=== PATIENT | female | born 2000 | race Caucasian/White ===

== ENCOUNTER 2022-02-22 12:07 | Emergency (ER) | payer BC, SELFPAY ==
[2022-02-22 12:14] VITALS: BP 119/70; PULSE 83; RESP 16; TEMP 37.1; O2SAT 98
--- NOTE | 2022-02-22 13:05 | ED.GENADUL_ITS ---
Discharge Plan Disposition Patient Disposition: Home Condition: Stable Discharge Details Clinical Impression: Otitis media, URI (upper respiratory infection) Primary Care Provider: Unknown,Unknown ED Provider: Sesar Watson Home Meds and New Rx's Prescriptions: New amoxicillin 875 mg tablet 875 mg PO BID 7 Days Qty: 14 0RF Continued dexmethylphenidate 10 mg tablet 10 mg PO DAILY MDD 10 mg Qty: 15 0RF No Action mometasone 50 mcg/actuation spray,non-aerosol 2 spray intranasal DAILY Qty: 17 0RF Rx Instructions: administer into each nostril Discharge Instructions Instructions: Ear Infection (ED), Upper Respiratory Infection (ED) Additional Instructions: Please continue to take [id number] ibuprofen 600 mg every 6 hours as needed for pain and discomfort. If you develop any new or worsening symptoms please return to the emergency department for reassessment otherwise if not improving in the next week please follow-up with your primary care provider or local urgent care for recheck of your symptoms. Please take the antibiotic for the full course of 7 days even if you are improving to ensure full treatment of your infection. Referrals: Primary Care Provider [Outside] Discharge Data Discharge Date/Time-TO BE ENTERED AT DEPARTURE: 02/22/22 13:16 Medical Decision Making Think that patient presenting the emergency department with chief complaint of right ear pain. She states that she has had an upper respiratory cold for the past week but over the past 24 to 48 hours has noticed increase in right ear discomfort. Denies any loss of hearing, drainage from the ear, stiff neck, productive cough. Patient does report subjective low-grade fevers , sore throat, and nasal congestion with intermittent red irritated eyes. Physical exam does show a purulent effusion behind the right TM very minimal erythema and left TM does show a small amount of purulence as well. Exam is otherwise unremarkable. Exam consistent with Viral URI no signs of deep neck space infection ( Retropharyngeal abscess, Vasquez's angina, Parapharyngeal space infection, Peritonsillar Abscess (TRANSITION ADVISOR)) or Epiglottitis, no signs of meningitis and at this time I doubt associated pneumonia. Pt non toxic and stable. Strep testing along with rapid antigen testing of flu and COVID are all negative. Will prescribe patient antibiotics for otitis media and discussed conservative management of additional symptoms. After discussion of diagnosis and plan of care patient has no further needs, questions, or concerns and states clear understanding to return to the emergency department for any worsening symptoms. This documentation was generated using [employer] [place] dictation system, please disregard any oddities of phrase or misspellings. Sign Out No HPI General Mode of arrival: ambulatory . Date/Time Provider Initiated Documentation: 02/22/22 12:27 . Limitations to Documentation: no limitations . Information obtained by: patient . History of Present Illness 21 year old F presents to the emergency department with the chief complaint of right ear pain , cough sore throat and runny nose, described as moderate, Quality is described as aching, and is localized to the right (ear). Patient reports no radiation. Patient started experiencing this week(s) (1) and it has been constant. No relieving factors improve symptom(s), No exacerbating factors reported . Patient did receive the following treatments prior to arrival, NSAID Related Data Home Medications Medication Instructions Recorded Confirmed dexmethylphenidate 10 mg tablet 10 mg PO DAILY #15 tabs 03/18/19 02/26/22 amoxicillin 875 mg tablet 875 mg PO BID 7 days #14 tabs 02/22/22 02/26/22 mometasone 50 mcg/actuation nasal 2 spray intranasal DAILY #17 grams 02/26/22 spray Previous Rx's Medication Instructions Recorded dexmethylphenidate 10 mg tablet 10 mg PO DAILY #15 tabs 03/18/19 amoxicillin 875 mg tablet 875 mg PO BID 7 days #14 tabs 02/22/22 mometasone 50 mcg/actuation nasal 2 spray intranasal DAILY #17 grams 02/26/22 spray Allergies Allergy/AdvReac Type Severity Reaction Status Date / Time No Known Allergies Allergy Verified 02/26/22 09:02 General Stated Complaint: Sorethroat SANTOS: 4 Review of Systems Constitutional Constitutional: Reports chills, Reports fever(s), Denies headache(s) and Reports malaise Eyes Eyes: Reports irritation ENT Ears, Nose, Mouth, and Throat: Reports as per HPI, Denies ear discharge, Reports otalgia, Denies headache(s), Reports nasal congestion, Reports nasal discharge, Denies neck pain and Reports sore throat Cardiovascular Cardiovascular: Denies chest pain and Denies dyspnea Respiratory Respiratory: Reports cough and Denies dyspnea Gastrointestinal Gastrointestinal: Denies abdominal pain Musculoskeletal Musculoskeletal: Denies myalgias and Denies neck pain Integumentary/Breasts Skin/Breast: Denies rash Neurologic Neurologic: Denies headache(s) PFSH All Active Problems (Updated 02/26/22 @ 09:20 by MIGUELITO Jackson) Otitis media (Acute) URI (upper respiratory infection) (Acute) Blocked eustachian tube (Acute) Acne (Acute 05/19/12) Pes planus (Acute 12/23/12) ADHD, predominantly inattentive type (Acute 02/20/12) inattentive Medical History (Updated 02/26/22 @ 09:20 by MIGUELITO Jackson) ADHD, predominantly inattentive type Family History Other Diabetes MGM Alcohol abuse mat great GF, PGM Essential hypertension MGM, PGM Personal history of malignant neoplasm mat and pat great GM- breast Heart disease MGF Hyperlipidemia MGM Myocardial infarction mat great GF Stroke mat great GM, pat great GF Mother Healthy adult on routine physical examination Father Healthy adult on routine physical examination Social History Smoking/Tobacco Use Status: Never Smoking risk assessment performed?: Yes Drug use: Never Substance use type: does not use Do you feel safe at home: Yes Do you feel safe in your relationship?: Yes Exam Const General: cooperative, comfortable and no acute distress Orientation: alert and awake [facility] Head: normal to inspection, normocephalic and atraumatic Ears: hearing grossly normal bilaterally, mastoids normal and TM abnormal bulging bilaterally, wth effusion purulent bilaterally, erythematous on the right and with loss of landmarks bilaterally General nose exam: external nose normal Face and sinus: no erythema Mouth: oral mucosae normal, no drooling, no muffled voice and no trismus Throat: posterior oropharynx normal Neck Neck: normal visual inspection, full ROM, no lymphadenopathy, no meningeal signs, trachea midline and supple Resp Effort & Inspection: normal respiratory effort, able to speak in complete sentences and cough Quality of cough: dry Auscultation: clear to auscultation bilaterally Cardio Rate: regular rate Rhythm: regular rhythm Heart Sounds: S1 normal, S2 normal, normal S1 and S2, no click, no gallops, no murmurs and no rubs Skin General skin exam: no rashes or lesions noted and dry skin (warm) Neuro General: patient alert, patient awake, patient oriented x3, gait normal and moves all extremities Cognition: normal cognition Speech: speech normal Course Vital Signs Vital signs: Vital Signs Temperature 37.1 C 02/22/22 12:14 Pulse 83 02/22/22 12:14 Respiratory Rate 16 02/22/22 12:14 Blood Pressure 119/70 02/22/22 12:14 Pulse Oximetry 98 02/22/22 12:14 Temperature 37.1 C 02/22/22 12:14 Temperature Source Temporal Artery Scan 02/22/22 12:14 Pulse 83 02/22/22 12:14 Respiratory Rate 16 02/22/22 12:14 Respiratory Effort Non-Labored 02/22/22 12:19 Blood Pressure 119/70 02/22/22 12:14 Blood Pressure Position Sitting 02/22/22 12:14 Pulse Oximetry 98 02/22/22 12:14 Oxygen Delivery Method Room Air 02/22/22 12:14 Oxygen Flow Rate 0 02/22/22 12:14 Lab/Test Results Lab/Test Results: 02/22/22 12:16 Pharynx Group A Streptococcus Culture - Pending POC Strep Test-AVTAR(Rapid) Start: 02/22/22 12:22 Freq: Status: Active Protocol: Document 02/22/22 12:22 HANNAH (Rec: 02/22/22 12:22 HANNAH [id number]) Strep test-AVTAR(Rapid)-POC POC-Strep test-AVTAR (Rapid) Negative POC-Strep test-AVTAR (Rapid) Negative
== END 2022-02-22 13:16 | disposition home or self-care (01) ==
PROVIDERS: Emergency Provider Nurse Practitioner Family
DX: H66.91 Otitis media, unspecified, right ear (principal); J06.9 Acute upper respiratory infection, unspecified
CPT/HCPCS: 87880; 99283; 87081

== ENCOUNTER 2022-02-26 08:48 | Emergency (ER) | payer BC, SELFPAY ==
[2022-02-26 09:00] VITALS: BP 112/83; PULSE 95; RESP 14; TEMP 37; O2SAT 96
--- NOTE | 2022-02-26 09:16 | ED.GENADUL_ITS ---
Discharge Plan Disposition Patient Disposition: Home Condition: Stable Discharge Details Clinical Impression: Blocked eustachian tube Primary Care Provider: Unknown,Unknown ED Provider: Amy Leonardo Home Meds and New Rx's Prescriptions: New mometasone 50 mcg/actuation spray,non-aerosol 2 spray intranasal DAILY Qty: 17 0RF Rx Instructions: administer into each nostril Continued dexmethylphenidate 10 mg tablet 10 mg PO DAILY MDD 10 mg Qty: 15 0RF amoxicillin 875 mg tablet 875 mg PO BID 7 Days Qty: 14 0RF Discharge Instructions Additional Instructions: use nasonex daily for 1 month pseudoephedrine for the next 3 days increased fluids follow-up with ENT with persistent symptoms >2 additional weeks Referrals: Raimundo Elliott MD [ [facility] STAFF PHYSICIAN] - Medical Decision Making Patient placed on Nasonex Referral to ENT Will take Sudafed Reviewed note from prior assessment, treating empirically with amoxicillin Return precautions discussed and patient expressed understanding No evidence of mastoiditis, otitis media, or otitis externa clinically Medical Records Medical records reviewed: Yes I reviewed the patient's medical records. Sign Out No HPI General Date/Time Provider Initiated Documentation: 02/26/22 08:57 . HPI Narrative: This 21-year-old female presents with report of earache for the past several days. She states she had upper respiratory symptoms prior to that. She denies any fever or chills. She denies any chest pain or shortness of breath. She states that the amoxicillin has not improved her symptoms which is why she presents. She denies any drainage. Related Data Home Medications Medication Instructions Recorded Confirmed dexmethylphenidate 10 mg tablet 10 mg PO DAILY #15 tabs 03/18/19 02/26/22 amoxicillin 875 mg tablet 875 mg PO BID 7 days #14 tabs 02/22/22 02/26/22 mometasone 50 mcg/actuation nasal 2 spray intranasal DAILY #17 grams 02/26/22 spray Previous Rx's Medication Instructions Recorded dexmethylphenidate 10 mg tablet 10 mg PO DAILY #15 tabs 03/18/19 amoxicillin 875 mg tablet 875 mg PO BID 7 days #14 tabs 02/22/22 mometasone 50 mcg/actuation nasal 2 spray intranasal DAILY #17 grams 02/26/22 spray Allergies Allergy/AdvReac Type Severity Reaction Status Date / Time No Known Allergies Allergy Verified 02/26/22 09:02 General Stated Complaint: Recheck SANTOS: 5 Review of Systems All systems reviewed & are unremarkable except as noted in HPI and below PFSH All Active Problems (Updated 02/26/22 @ 09:20 by MIGUELITO Jackson) Otitis media (Acute) URI (upper respiratory infection) (Acute) Blocked eustachian tube (Acute) Acne (Acute 05/19/12) Pes planus (Acute 12/23/12) ADHD, predominantly inattentive type (Acute 02/20/12) inattentive Medical History (Updated 02/26/22 @ 09:20 by MIGUELITO Jackson) ADHD, predominantly inattentive type Family History Other Diabetes MGM Alcohol abuse mat great GF, PGM Essential hypertension MGM, PGM Personal history of malignant neoplasm mat and pat great GM- breast Heart disease MGF Hyperlipidemia MGM Myocardial infarction mat great GF Stroke mat great GM, pat great GF Mother Healthy adult on routine physical examination Father Healthy adult on routine physical examination Social History Smoking/Tobacco Use Status: Never Smoking risk assessment performed?: Yes Drug use: Never Substance use type: does not use Do you feel safe at home: Yes Do you feel safe in your relationship?: Yes Exam Const General: cooperative, comfortable and no acute distress HENMT Head: normal to inspection Other: fluid behind TMs bilaterally Eyes Pupils: PERRL Resp Effort & Inspection: normal respiratory effort Cardio Rate: regular rate Course Vital Signs Vital signs: Vital Signs Temperature 37.0 C 02/26/22 09:00 Pulse 95 H 02/26/22 09:00 Respiratory Rate 14 02/26/22 09:00 Blood Pressure 112/83 02/26/22 09:00 Pulse Oximetry 96 02/26/22 09:00 Temperature 37.0 C 02/26/22 09:00 Temperature Source Temporal Artery Scan 02/26/22 09:00 Pulse 95 H 02/26/22 09:00 Respiratory Rate 14 02/26/22 09:00 Respiratory Effort Non-Labored 02/26/22 09:03 Blood Pressure 112/83 02/26/22 09:00 Blood Pressure Position Sitting 02/26/22 09:00 Pulse Oximetry 96 02/26/22 09:00 Oxygen Delivery Method Room Air 02/26/22 09:00 Oxygen Flow Rate 0 02/26/22 09:00
== END 2022-02-26 09:56 | disposition home or self-care (01) ==
PROVIDERS: Emergency Provider Physician Assistant
DX: H68.101 Unspecified obstruction of Eustachian tube, right ear (principal)
CPT/HCPCS: 99283

== ENCOUNTER 2023-03-17 18:39 | Emergency (ER) | payer BC, SELFPAY ==
[2023-03-17 18:47] VITALS: BP 123/83; PULSE 83; RESP 19; TEMP 37.1; O2SAT 96
--- NOTE | 2023-03-17 19:15 | W.ED.GENAD ---
Discharge Plan Disposition Patient Disposition: Home Discharge Details Clinical Impression: Acute left otitis media Primary Care Provider: Yumi Cantu ED Provider: Tyrel Monteiro Home Meds and New Rx's Prescriptions: No Action fluoxetine 20 mg capsule 20 mg PO DAILY Qty: 90 1RF amoxicillin-pot clavulanate 875-125 mg tablet 1 tab PO BID 7 Days Qty: 14 0RF Rx Instructions: Take with meal. Take 1 pill every 12 hours x 7days Discharge Instructions Instructions: Ear Infection (ED) Additional Instructions: At this time you still do have evidence of a left otitis media. There is no evidence of rupture currently thankfully. As we discussed together, please continue the saline nasal spray, as well as the fluticasone spray. It is my recommendation that you stop taking the antihistamine medication of Zyrtec or Claritin as this can worsen your symptoms and increase the likelihood of tympanic membrane rupture. Please take the antibiotic as directed. Please take 800 mg of ibuprofen every 6 hours and 1000 mg of Tylenol every 6 hours. These are the maximum doses. If you notice any worsening of your symptoms, or any new symptoms such as vomiting, diarrhea, fever, chills, shortness of breath, chest pain, numbness, weakness, or fainting , please return immediately to the emergency department for reevaluation. Please follow up with your primary care provider as soon as possible for reassessment and reevaluation. As always, it was a pleasure participating in your medical care today. Referrals: Yumi Cantu, FUEL [employer]SEMBLER [Primary Care Provider] - Medical Decision Making 22-year-old female with no significant past medical history presents today for evaluation of left ear pain. Patient states symptoms been present for the last 3 to 4 days, she went to see the urgent care recently and was started on Augmentin. She took the first dose within the last 24 hours. She states that she has been taking Children's Motrin and Tylenol, which has slightly helped with the pain. She was also recommended Flonase and saline nasal rinse, which she has been taking as directed. Additionally was recommended that she take Zyrtec or Claritin, and she did take that this morning and after that the pain got worse in her ear. She presents today for reevaluation. She denies any drainage or discharge. No fever or chills. No neck pain chest pain shortness of breath or cough. No other complaints at this time. Exam demonstrates notable evidence of otitis media on the left with bulging and effusion but no evidence of rupture. No other abnormalities on exam otherwise. As the patient is taking Augmentin already, I do feel that this is appropriate treatment as she has only had 1 or 2 doses. Will recommend maximum dose anti-inflammatories of Tylenol and Motrin. Recommend stopping the antihistamines based on current [place] [employer] recommendations as this may worsen her symptoms. I did discuss with the patient the only other pain treatment options, including narcotics. Through shared decision making conversation, weighing the risks and benefits, patient will be sent home with a single oxycodone to be used for breakthrough pain if needed. Discussed red flags for which to return. I have extensively reviewed the treatment plan and discharge instructions with the patient. I have addressed all patient concerns at this time. The patient was made aware of what symptoms to monitor for that would warrant a return to the emergency department. Discussed the plan with the patient, they demonstrate verbal understanding and agreement with our assessment and plan at this time. The documentation in this chart was dictated using [employer] dictation software. Please excuse any dictation errors. HPI General Date/Time Provider Initiated Documentation: 03/17/23 19:02. HPI Narrative: 22-year-old female with no significant past medical history presents today for evaluation of left ear pain. Patient states symptoms been present for the last 3 to 4 days, she went to see the urgent care recently and was started on Augmentin. She took the first dose within the last 24 hours. She states that she has been taking Children's Motrin and Tylenol, which has slightly helped with the pain. She was also recommended Flonase and saline nasal rinse, which she has been taking as directed. Additionally was recommended that she take Zyrtec or Claritin, and she did take that this morning and after that the pain got worse in her ear. She presents today for reevaluation. She denies any drainage or discharge. No fever or chills. No neck pain chest pain shortness of breath or cough. No other complaints at this time. Related Data Home Medications Medication Instructions Recorded Confirmed fluoxetine 20 mg capsule 20 mg PO DAILY #90 caps 02/24/23 03/17/23 amoxicillin 875 mg-potassium 1 tab PO BID 7 days #14 tabs 03/17/23 03/17/23 clavulanate 125 mg tablet Previous Rx's Medication Instructions Recorded fluoxetine 20 mg capsule 20 mg PO DAILY #90 caps 02/24/23 amoxicillin 875 mg-potassium 1 tab PO BID 7 days #14 tabs 03/17/23 clavulanate 125 mg tablet Allergies Allergy/AdvReac Type Severity Reaction Status Date / Time No Known Allergies Allergy Verified 03/17/23 09:07 General Stated Complaint: EarProblem SANTOS: 4 Review of Systems All systems reviewed & are unremarkable except as noted in HPI and below PFSH All Active Problems Acute left otitis media (Acute) Anxiety and depression (Chronic) Acne (Acute 05/19/12) Pes planus (Acute 12/23/12) ADHD, predominantly inattentive type (Acute 02/20/12) inattentive Family History Other Diabetes MGM Alcohol abuse mat great GF, PGM Essential hypertension MGM, PGM Personal history of malignant neoplasm mat and pat great GM- breast Heart disease MGF Hyperlipidemia MGM Myocardial infarction mat great GF Stroke mat great GM, pat great GF Mother Healthy adult on routine physical examination Father Healthy adult on routine physical examination Sister Depression Social History Smoking/Tobacco Use Status: Never Second Hand Exposure: Yes Smoking risk assessment performed?: Yes Alcohol Intake: current Alcohol Intake frequency: holidays/special occasions only Drug use: Never Substance use type: does not use Household members: family Housing: house Communication Needs: None Do you need help understanding health information?: Never Pets and animals: Yes Sexually active: No Do you think of yourself as: don't know Current gender identity: female How often do you talk on the phone with friends or family?: three or more times per week How often do you get together with friends or relatives?: once per week Do you belong to any clubs or organized social groups?: no Panel score (0-1 are the most socially isolated patients): 1 What type of physical activity do you participate in: none Seatbelt use: always Helmet use: No Drive intox or ride w/intox gravel truck driver: No Do you feel safe at home: Yes Do you feel safe in your relationship?: Yes Exam Narrative Exam Narrative: 1.Const: Well-nourished, Well-developed, appearing stated age 2.Eyes: PERRL, no conjunctival injection, and symmetrical lids. 3.ENT: Atraumatic external nose and ears. Moist MM. Neck: Symmetric, trachea midline, No thyromegaly. Right tympanic membrane normal. Left tympanic membrane demonstrates notable effusion and bulging with no evidence of bleeding or rupture. No evidence of erythema in the posterior oropharynx 4.CVS: +S1/S2, No murmurs or gallops. Peripheral pulses 2+ and equal in all extremities. Brisk capillary refill in all extremities. 5.RESP: Unlabored respiratory effort. Clear to auscultation bilaterally. No wheezes rales or rhonchi 6.GI: Soft, Nontender/Nondistended, No hepatosplenomegaly. No guarding or rebound. 7.MSK: Normocephalic/Atraumatic, Extremities w/o deformity or ttp No cyanosis or clubbing, Normal movement of all extremities 8.Skin: Warm, Dry. No rashes or lesions. 9.Neuro: oriental rug repairer II-XII grossly intact. Sensation grossly intact, no focal neurologic deficits. 10.Psych: (AAO) x3. Appropriate mood and affect Course Vital Signs Vital signs: Vital Signs Temperature 37.1 C 03/17/23 18:47 Pulse 83 03/17/23 18:47 Respiratory Rate 19 03/17/23 18:47 Blood Pressure 123/83 03/17/23 18:47 Pulse Oximetry 96 03/17/23 18:47 Temperature 37.1 C 03/17/23 18:47 Temperature Source Temporal Artery Scan 03/17/23 18:47 Pulse 83 03/17/23 18:47 Respiratory Rate 19 03/17/23 18:47 Respiratory Effort Normal, Non-Labored 03/17/23 18:52 Blood Pressure 123/83 03/17/23 18:47 Blood Pressure Position Sitting 03/17/23 18:47 Pulse Oximetry 96 03/17/23 18:47 Oxygen Delivery Method Room Air 03/17/23 18:47 Oxygen Flow Rate 0 03/17/23 18:47 Pain Level 9 03/17/23 18:52
[2023-03-17] MEDS: oxyCODONE 5 MG TAB PO (19:22)
== END 2023-03-17 19:22 | disposition home or self-care (01) ==
LOC: ER 19:29
PROVIDERS: Emergency Provider Student in an Organized Health Care Education/Training Program; PCP Nurse Practitioner Family
DX: H66.92 Otitis media, unspecified, left ear (principal)
CPT/HCPCS: 99282; 99283